=== PATIENT | female | born 1960 | race Hispanic/Latino ===

== ENCOUNTER 2022-04-10 17:29 | Emergency (ER) | payer OTHER ==
[2022-04-10] MEDS ORDERED: Ketorolac Tromethamine 30 MG/ML VIAL ONE (18:03)
== END 2022-04-10 20:50 | disposition home or self-care (01) ==
LOC: EEVIPCON 17:29 → ERS 17:29
DX: N64.4 Mastodynia (principal); M89.8X1 Other specified disorders of bone, shoulder; K21.9 Gastro-esophageal reflux disease without esophagitis; E78.5 Hyperlipidemia, unspecified; E78.00 Pure hypercholesterolemia, unspecified; F17.210 Nicotine dependence, cigarettes, uncomplicated
CPT/HCPCS: 96372; J1885